=== PATIENT | male | born 2000 | race Hispanic/Latino ===

== ENCOUNTER 2021-03-08 00:40 | Emergency (ER) | payer SELFPAY ==
[2021-03-08 01:07] LABS: Basophils % 0.6 % (0-1.3); Lymphocytes % 31.9 % (15.3-44.8); MPV 7.3 fL (7.6-11.3); RBC Red Blood Cell Count 4.25 M/uL (4.33-5.43)
[2021-03-08] MEDS ORDERED: NA CHLORIDE 0.9% 1,000 ML ONE (01:19)
[2021-03-08 01:23] LABS: ALT/SGPT 30 U/L (12-78); AST/SGOT 12 U/L (15-37); Albumin 3.8 g/dL (3.4-5.0); Alkaline Phosphatase 92 U/L (45-117); BUN Blood Urea Nitrogen 6 mg/dL (7-18); Bicarbonate 29 mmol/L (21-32); Bilirubin Direct 0.2 mg/dL (0-0.2); Bilirubin Total 0.6 mg/dL (0.2-1.0); Glucose Level 98 mg/dL (74-106); Potassium 3.3 mmol/L (3.5-5.1); Protein, Total 6.8 g/dL (6.4-8.2); Sodium Level 146 mmol/L (136-145)
--- NOTE | 2021-03-08 04:41 | EDPHYS ---
Physician Documentation [facility] Name: Darren Perez Age: 21 yrs Sex: Male : 2000 Arrival Date: 03/08/2021 Time: 00:42 Bed 23 Private MD: ED Physician Monroe Bradley HPI: 03/08 00:46 This 21 yrs old Male presents to ER via Unassigned with complaints of Altered rn mental status. 00:46 The patient presents with decreased responsiveness. Onset: The symptoms/episode rn began/occurred at an unknown time. Possible causes: alcohol. Associated signs and symptoms: Pertinent negatives: abdominal pain, chest pain, headache, seizure, shortness of breath, vomiting, weakness. Current symptoms: In the emergency department the patient's symptoms have improved. The patient has not experienced similar symptoms in the past. The patient has not recently seen a physician. Patient reports now drinking today, reports drinking 6-8 margaritas. Denies any injury. Does not recall being out with anybody specific. Denies drug use or overdose. Denies suicidal or homicidal ideations. Was found downtown minimally responsive underneath a truck. No meds given by EMS and is slowly waking up.. Historical: - Allergies: 00:45 No Known Allergies; dc2 - Home Meds: 00:45 None [Active]; dc2 - PMHx: 00:45 None; dc2 - PSHx: 00:45 None; dc2 - Immunization history:: Adult Immunizations up to date, Client reports having NOT received the Covid vaccine. Last tetanus immunization: up to date Flu vaccine status is unknown. - Family history:: not pertinent. - Social history:: Smoking status: Patient denies any tobacco usage or history of. Patient/guardian denies using street drugs, IV drugs, tobacco products. - Hospitalizations: : No recent hospitalization is reported. ROS: 00:46 Constitutional: Negative for fever, chills, and weight loss, Eyes: Negative for injury, rn pain, redness, and discharge, Neck: Negative for injury, pain, and swelling, Cardiovascular: Negative for chest pain, palpitations, and edema, Respiratory: Negative for shortness of breath, cough, wheezing, and pleuritic chest pain, Abdomen/GI: Negative for abdominal pain, nausea, vomiting, diarrhea, and constipation, Back: Negative for injury and pain, : Negative for injury, bleeding, discharge, and swelling, MS/Extremity: Negative for injury and deformity, Skin: Negative for injury, rash, and discoloration, Neuro: Negative for headache, weakness, numbness, tingling, and seizure. Exam: 00:46 Constitutional: This is a well developed, well nourished patient who is awake, rn answering questions, smiling Head/Face: Normocephalic, atraumatic. Eyes: Pupils equal round and reactive to light, extra-ocular motions intact. Lids and lashes normal. Conjunctiva and sclera are non-icteric and not injected. Cornea within normal limits. Periorbital areas with no swelling, redness, or edema. ENT: Dry mucous membranes, no tongue bite or laceration Neck: Trachea midline, no thyromegaly or masses palpated, and no cervical lymphadenopathy. Supple, full range of motion without nuchal rigidity, or vertebral point tenderness. No Meningismus. Cardiovascular: Regular rate and rhythm. No pulse deficits. Respiratory: No increased work of breathing, no retractions or nasal flaring. Abdomen/GI: Soft, non-tender Skin: Warm, dry MS/ Extremity: Pulses equal, no cyanosis. Neurovascular intact. Full, normal range of motion. Equal circumference. Neuro: Awake, GCS 15. Moves all 4 extremities with 5 out of 5 strength. Sensation intact. Oriented to person and place. Vital Signs: 00:43 BP 128 / 77; Pulse 84; Resp 16; Temp 98.7; Pulse Ox 99% on R/A; Weight 86.18 kg; Height dc2 5 ft. 9 in. (175.26 cm); Pain 0/10; 01:00 BP 120 / 68; Pulse 86; Resp 16; Pulse Ox 97% on R/A; Pain 0/10; dc2 02:00 BP 99 / 52; Pulse 76; Resp 15; Pulse Ox 99% ; Pain 0/10; dc2 03:00 BP 97 / 58; Pulse 76; Resp 15; Pulse Ox 99% ; Pain 0/10; dc2 04:00 BP 99 / 65; Pulse 71; Resp 15; Pulse Ox 99% ; Pain 0/10; dc2 05:00 BP 100 / 62; Pulse 71; Resp 15; Pulse Ox 100% ; Pain 0/10; dc2 00:43 Body Mass Index 28.06 (86.18 kg, 175.26 cm) dc2 MDM: 00:42 Patient medically screened. rn 05:36 Differential Diagnosis: alcohol intoxication, hypoglycemia, volume depletion. Data rn reviewed: vital signs, nurses notes, lab test result(s), EKG, and as a result, I will discharge patient. Counseling: I had a detailed discussion with the patient and/or guardian regarding: the historical points, exam findings, and any diagnostic results supporting the discharge/admit diagnosis, lab results, the need for outpatient follow up, to return to the emergency department if symptoms worsen or persist or if there are any questions or concerns that arise at home. Response to treatment: the patient's symptoms have markedly improved after treatment, patient is well hydrated. and as a result, I will discharge patient. ED course: Patient markedly improved, and is awake, now recalls that he was at [facility], is calling for a ride from a friend right now. Will DC home his alcohol intoxication uncomplicated.. 03/08 00:42 Order name: Acetaminophen; Complete Time: rn 03/08 00:42 Order name: Basic Metabolic Panel; Complete Time: rn 03/08 00:42 Order name: CBC with Diff; Complete Time: rn 03/08 00:42 Order name: ETOH Level; Complete Time: rn 03/08 00:42 Order name: Hepatic Function; Complete Time: rn 03/08 00:42 Order name: EKG - Nurse/Tech; Complete Time: 05:54 rn 03/08 00:42 Order name: IV Saline Lock; Complete Time: 00: rn 03/08 00:42 Order name: Labs collected and sent; Complete Time: 00:54 rn 03/08 00:42 Order name: Glucose Level; Complete Time: 00: rn 03/08 01:04 Order name: Glucose, Ancillary Testing; Complete Time: EDMS Administered Medications: 00:56 Drug: NS 0.9% 1000 ml Route: IV; Rate: 1000 ml; Infused Over: 1 hrs; Site: right dc2 antecubital; Delivery: Primary tubing; 05:53 Follow up: IV Status: Completed infusion; IV Intake: 1000ml dc2 Disposition Summary: 03/08/21 05:38 Discharge Ordered Location: Home(03/08/21 05:38) rn Problem: new(03/08/21 05:38) rn Symptoms: have improved(03/08/21 05:38) rn Condition: Stable(03/08/21 05:38) rn Diagnosis - Alcohol use, unspecified with intoxication, uncomplicated rn Followup: rn - With: Private Physician - When: As needed - Reason: Recheck today's complaints, Re-evaluation by your physician Discharge Instructions: - Discharge Summary Sheet rn - Alcohol Intoxication rn Forms: - Medication Reconciliation Form rn - Thank You Letter rn - Antibiotic software intern - Prescription Opioid Use rn Signatures: Dispatcher [employer] EDMonroe Arredondo MD MD rn Sisi, IVELISSE Cobian RN dc2 Corrections: (The following items were deleted from the chart) 04:36 Differential Diagnosis: electrolyte abnormality, volume depletion, hypokalemic rn periodic paralysis, rn 04:36 Data reviewed: vital signs, nurses notes, lab test result(s), EKG, and as a rn result, I will admit patient, rn 04:36 Data interpreted: extract operator: rate is 76 beats/min, rhythm is normal sinus rn rhythm, regular, with no ectopy, Interpretation: normal rate, normal rhythm, Pulse oximetry: on room air is 99 %. Interpretation: normal. rn 04:36 Counseling: I had a detailed discussion with the patient and/or guardian rn regarding: the historical points, exam findings, and any diagnostic results supporting the discharge/admit diagnosis, lab results, radiology results, the need for further work-up and treatment in the hospital, rn 04:36 Response to treatment: the patient's symptoms have mildly improved after rn treatment, and as a result, I will admit patient, rn 04:36 Admission orders: after a detailed discussion of the patient's condition and rn case, the admit orders are written by me. rn 04:36 ED course: Pt with slight improvement, will admit to hospitalist service for rn hypokalemic periodic paralysis and prolonged QT.. rn 04:41 Observation rn rn : 04:41 Bk Bradley rn rn : 04:41 Telemetry/MedSurg (observation) rn rn 04:41 04:41 Stable rn rn 04:41 04:41 an acute exacerbation rn rn 04:41 04:41 have improved rn rn 04:41 04:41 Standard rn rn 04:41 04:41 rn rn 04:41 04:41 Hypokalemia rn rn 04:41 04:41 Hypokalemic periodic paralysis rn rn 05:54 00:42 Urine Dipstick-Ancillary ordered. rn dc2
--- NOTE | 2021-03-08 04:41 | ER ---
Nurse's Notes [facility] Name: Darren Perez Age: 21 yrs Sex: Male : 2000 Arrival Date: 03/08/2021 Time: 00:42 Bed 23 Private MD: Diagnosis: Alcohol use, unspecified with intoxication, uncomplicated Presentation: 03/08 00:43 Chief complaint: Patient states: States after work he went home and studied for awhile dc2 then went and had some margaritas with friends and cannot remember after that. Reports having 6-8 Margaritas . EMS states they found him under a box truck and was not answering questions. Pt is drowsy but cooperative and able to answer all questions upon assessment when arriving to the emergency dept. Coronavirus screen: Vaccine status: Patient reports being unvaccinated. Client denies travel out of the [place] in the last 14 days. At this time, unable to obtain information related to travel outside the [place] At this time, the client does not indicate any symptoms associated with coronavirus-19. Ebola Screen: Patient negative for fever greater than or equal to 101.5 degrees Fahrenheit, and additional compatible Ebola Virus Disease symptoms Patient denies exposure to infectious person. Patient denies travel to an Ebola-affected area in the 21 days before illness onset. Initial Sepsis Screen: Does the patient meet any 2 criteria? No. Patient's initial sepsis screen is negative. Does the patient have a suspected source of infection? No. Patient's initial sepsis screen is negative. Risk Assessment: Do you want to hurt yourself or someone else? Patient reports no desire to harm self or others. Onset of symptoms is unknown. 00:43 Method Of Arrival: EMS: [facility] dc2 00:43 Acuity: WILMA 3 dc2 Triage Assessment: 00:45 General: Appears in no apparent distress. Pain: Denies pain. Neuro: No deficits noted. dc2 Cardiovascular: No deficits noted. Respiratory: No deficits noted. Breath sounds are clear. GI: No deficits noted. No signs and/or symptoms were reported involving the gastrointestinal system. Bowel sounds present X 4 quads. : No signs and/or symptoms were reported regarding the genitourinary system. : No deficits noted. Musculoskeletal: No deficits noted. No signs and/or symptoms reported regarding the musculoskeletal system. 00:45 General: Behavior is calm, cooperative, quiet. dc2 Historical: - Allergies: 00:45 No Known Allergies; dc2 - Home Meds: 00:45 None [Active]; dc2 - PMHx: 00:45 None; dc2 - PSHx: 00:45 None; dc2 - Immunization history:: Adult Immunizations up to date, Client reports having NOT received the Covid vaccine. Last tetanus immunization: up to date Flu vaccine status is unknown. - Family history:: not pertinent. - Social history:: Smoking status: Patient denies any tobacco usage or history of. Patient/guardian denies using street drugs, IV drugs, tobacco products. - Hospitalizations: : No recent hospitalization is reported. Screenin:43 Abuse screen: Denies threats or abuse. Denies injuries from another. Nutritional dc2 screening: No deficits noted. Tuberculosis screening: No symptoms or risk factors identified. Never had TB. Fall Risk None identified. No fall in past 12 months (0 pts). No secondary diagnosis (0 pts). IV access (20 points). Ambulatory Aid- None/Bed Rest/Nurse Assist (0 pts). Gait- Normal/Bed Rest/Wheelchair (0 pts) Mental Status- Oriented to own ability (0 pts). Total Anderson Fall Scale indicates No Risk (0-24 pts). Assessment: 00:45 General: Appears in no apparent distress. comfortable, slender, well groomed, well dc2 developed, Behavior is calm, cooperative, drowsy, Drowsy but answers questions appropriately and is Ox3. Pain: Denies pain. Neuro: No deficits noted. Respiratory: No deficits noted. Airway is patent Respiratory effort is even, unlabored, Respiratory pattern is regular, symmetrical. GI: No deficits noted. No signs and/or symptoms were reported involving the gastrointestinal system. : No signs and/or symptoms were reported regarding the genitourinary system. Derm: No deficits noted. 02:15 Reassessment: No changes from previously documented assessment. Patient and/or family dc2 updated on plan of care and expected duration. Pain level reassessed. Pt remains asleep, vss. continue to monitor. 05:05 Reassessment: Pt easily wakened . Pt attempt to use phone but phone is completely . dc2 Phone furnace charger given to pt to be able to use phone to call his friend Jas. Pt states he feels ok. 05:36 Reassessment: Pt fully awake, speaking to MD. Will call Jas for ride now. Is AAOx4 , dc2 states he had several margaritas. Vital Signs: 00:43 BP 128 / 77; Pulse 84; Resp 16; Temp 98.7; Pulse Ox 99% on R/A; Weight 86.18 kg; Height dc2 5 ft. 9 in. (175.26 cm); Pain 0/10; 01:00 BP 120 / 68; Pulse 86; Resp 16; Pulse Ox 97% on R/A; Pain 0/10; dc2 02:00 BP 99 / 52; Pulse 76; Resp 15; Pulse Ox 99% ; Pain 0/10; dc2 03:00 BP 97 / 58; Pulse 76; Resp 15; Pulse Ox 99% ; Pain 0/10; dc2 04:00 BP 99 / 65; Pulse 71; Resp 15; Pulse Ox 99% ; Pain 0/10; dc2 05:00 BP 100 / 62; Pulse 71; Resp 15; Pulse Ox 100% ; Pain 0/10; dc2 00:43 Body Mass Index 28.06 (86.18 kg, 175.26 cm) dc2 ED Course: 00:42 Patient arrived in ED. rn 00:42 Monroe Bradley MD is Attending Physician. rn 00:43 Aranza Laird, IVELISSE is Primary Nurse. dc2 00:43 Arm band placed on. dc2 00:45 No provider procedures requiring assistance completed. dc2 00:45 Maintain EMS IV. Dressing intact. Good blood return noted. Site clean \T\ dry. Gauge \T\ dc 2 site: 20g Right AC. Patient maintains SpO2 saturation greater than 95% on room air. 00:45 Patient has correct armband on for positive identification. Bed in low position. Call dc2 light in reach. Side rails up X 1. hospital monitor on. Pulse ox on. NIBP on. Door closed. Warm blanket given. 00:50 Triage completed. dc2 00:54 Acetaminophen Sent. dc2 00:54 Basic Metabolic Panel Sent. dc2 00:54 CBC with Diff Sent. dc2 00:54 ETOH Level Sent. dc2 00:54 Hepatic Function Sent. dc2 01:30 No apparent distress. Appears to be sleeping. dc2 01:30 Awaiting lab results. dc2 01:30 Patient has correct armband on for positive identification. Bed in low position. Call dc2 light in reach. Side rails up X 1. 01:30 hospital monitor on. Pulse ox on. NIBP on. dc2 02:30 No apparent distress. Appears to be sleeping. dc2 02:30 Bed in low position. Call light in reach. Side rails up X 1. hospital monitor on. Pulse dc2 ox on. NIBP on. Pt has turned to left side, is very sleepy , arousable but returns to sleep, instructed need for urine. 03:30 No apparent distress. Appears to be sleeping. dc2 03:30 hospital monitor on. Pulse ox on. NIBP on. Lights dimmed. dc2 03:30 Bed in low position. Call light in reach. Side rails up X 1. dc2 04:30 Bed in low position. Call light in reach. Side rails up X 1. hospital monitor on. Pulse dc2 ox on. NIBP on. 04:40 Bk Bradley MD is Hospitalizing Provider. rn 05:36 ED physician to see patient. dc2 05:45 IV discontinued, intact, bleeding controlled, No redness/swelling at site. Pressure dc2 dressing applied. Administered Medications: 00:56 Drug: NS 0.9% 1000 ml Route: IV; Rate: 1000 ml; Infused Over: 1 hrs; Site: right dc2 antecubital; Delivery: Primary tubing; 05:53 Follow up: IV Status: Completed infusion; IV Intake: 1000ml dc2 Intake: 05:53 IV: 1000ml; Total: 1000ml. dc2 Outcome: 04:41 Decision to Hospitalize by Provider. rn 05:38 Discharge ordered by . rn 05:52 Discharged to home ambulatory, with friend. dc2 05:52 Condition: good 05:52 Condition: good 05:52 Discharge instructions given to patient, Instructed on discharge instructions, Demonstrated understanding of instructions. 05:57 Patient left the ED. dc2 Signatures: Monroe Bradley MD MD rn SisiAranza RN RN dc2 Corrections: (The following items were deleted from the chart) 02:57 02:53 Reassessment: dc2 dc2
[2021-03-08 06:02] VITALS: TEMP 98.7
[2021-03-08 06:10] VITALS: BP 100/62; O2SAT 100
== END 2021-03-08 05:57 | disposition home or self-care (01) ==
LOC: ER 00:40
DX: F10.929 Alcohol use, unspecified with intoxication, unspecified (principal)
CPT/HCPCS: 36415; 80048; 80076; 80320; 80329; 82947; 85025; 96360; 96361; 99285; J7030